=== PATIENT | female | born 1940 | race Caucasian/White ===

== ENCOUNTER 2017-03-14 15:57 | Emergency (ER) | payer OTHER, MEDICAID ==
[~2017-03-14] VITALS: Ht 165.1 cm; Wt 59.0 kg
[~2017-03-14 15:57] MED LIST: ALPR0.2583 PO; BACL10TA PO; CARB-61 PO; DICL50TA9 PO; DONE10TA44 PO; FAMO40TA7 PO; FURO-150 PO; MECL25TA3 PO; MEMA21CA PO; METO50TA7 PO; POTA8CAP PO; SIMV40TA5 PO; SITA1TAB9 PO
[2017-03-14 16:09] VITALS: BP_SYST 138
[2017-03-14] MEDS ORDERED: METOPROLOL SUCC ER 50 MG TAB (16:14)
[2017-03-14] MEDS ORDERED: ALPRAZOLAM 0.25 MG TABLET (16:14)
[2017-03-14] MEDS ORDERED: DONEPEZIL HCL 10 MG TABLET (16:14)
[2017-03-14] MEDS ORDERED: NAMENDA XR 28 MG CAPSULE (16:14)
[2017-03-14] MEDS ORDERED: FAMOTIDINE 40 MG TABLET (16:14)
[2017-03-14] MEDS ORDERED: MIRTAZAPINE 15 MG TABLET (16:14)
[2017-03-14] MEDS ORDERED: DICLOFENAC SOD 50 MG (16:14)
[2017-03-14] MEDS ORDERED: JANUMET (16:14)
[2017-03-14 17:20] LABS: BASOPHILS % (AUTO) 0.7 % (0.0-2.0); EOSINOPHILS # (AUTO) 0.1 K/uL (0.0-0.4); HEMATOCRIT 34.3 % (36-48); LYMPHOCYTES # (AUTO) 1.4 K/uL (1.0-5.5); LYMPHOCYTES % (AUTO) 20.8 % (20.5-51.5); MEAN CORPUSCULAR HEMOGLOBIN 29 pg (27-31); MEAN CORPUSCULAR HGB CONC 32 % (32-36); MEAN CORPUSCULAR VOLUME 92 fL (79.0-98.0); MONOCYTES # (AUTO) 0.7 K/uL (0.0-1.0); MONOCYTES % (AUTO) 10.7 % (1.7-9.3); NEUTROPHILS # (AUTO) 4.5 K/uL (1.8-7.7); NEUTROPHILS % (AUTO) 65.8 % (40.0-70.0); PLATELET COUNT (AUTO) 174 K/uL (130-430); RED BLOOD CELL COUNT(AUTO) 3.74 MIL/uL (4.2-6.2); RED CELL DISTRIBUTION WIDTH 14.3 % (9.0-15.0); WHITE BLOOD COUNT (AUTO) 6.7 K/uL (4.8-10.8)
[2017-03-14 17:30] LABS: ANION GAP 8 (5-15); CALCIUM 8.9 mg/dL (8.4-11.0); CHLORIDE 105 mmol/L (98-107); CREATININE 1.51 mg/dL (0.55-1.30); GLUCOSE 162 mg/dL (70-99); POTASSIUM 4.2 mmol/L (3.5-5.1); SODIUM SERUM 138 mmol/L (136-145); UREA NITROGEN, BLOOD 28 mg/dL (8-21)
[2017-03-14 17:35] LABS: ALANINE AMINOTRANSFERASE 10 U/L (12-78); ALBUMIN 3.2 g/dL (3.4-4.8); ASPARTATE AMINOTRANSFERASE 15 U/L (10-37); TOTAL BILIRUBIN 0.7 mg/dL (0.0-1.0)
[2017-03-14 18:51] LABS: BILIRUBIN,URINE 1+ (NEGATIVE); CLARITY/URINE HAZY (CLEAR); COLOR,URINE YELLOW (YELLOW); GLUCOSE,URINE NEGATIVE (NEGATIVE); KETONES,URINE TRACE (NEGATIVE); LEUKOCYTE ESTERASE ,URINE 2+ (NEGATIVE); NITRITE, URINE POSITIVE (NEGATIVE); PH,URINE 5.5 (5.0-8.0); PROTEIN URINE 1+ (NEGATIVE); UROBILINOGEN,URINE 0.2 (0.2-1.0)
[2017-03-14 18:53] LABS: BLOOD, URINE TRACE (NEGATIVE)
[2017-03-14 19:14] LABS: BACTERIA,URINE MANY /HPF (None Seen); MUCUS,URINE None Seen /LPF (None Seen); RBC,URINE 0-3 /HPF (0-3)
[2017-03-14 19:18] VITALS: BP_SYST 138
== END 2017-03-14 19:18 | disposition home or self-care (01) ==
LOC: SED 15:57
DX: S39.012A Strain of muscle, fascia and tendon of lower back, initial encounter (principal); M25.551 Pain in right hip; R51 Headache; E11.9 Type 2 diabetes mellitus without complications; F03.90 Unspecified dementia, unspecified severity, without behavioral disturbance, psychotic disturbance, mood disturbance, and anxiety; Z79.899 Other long term (current) drug therapy; W01.0XXA Fall on same level from slipping, tripping and stumbling without subsequent striking against object, initial encounter; Y93.89 Activity, other specified; Y92.89 Other specified places as the place of occurrence of the external cause; Y99.8 Other external cause status
CPT/HCPCS: 36415; 70450-TC; 72170-TC; 73502; 80053; 81000-TC; 85025; 87086; 87186-TC; 99285